=== PATIENT | male | born 2005 | race Two or more races ===

== ENCOUNTER 2023-05-13 18:42 | Emergency (ER) | payer MEDICAID, SELFPAY ==
[2023-05-13 18:44] VITALS: BP 137/80; PULSE 90; RESP 18; TEMP 36.8; O2SAT 100; BMI 21.2
--- NOTE | 2023-05-13 18:50 | XR_ITS ---
The [address] [address] Patient Name: LALO FAROOQ MRN: [id number] date: 2005 Sex: M Assigned Patient Location: ER Current Patient Location: Accession/Order Number: [id number] Exam Date: 05/13/2023 19:05 Report Date: 05/13/2023 20:08 At the request of: MATT LEE Procedure: XR hand RT min 3V EXAM: XR hand RT min 3V HISTORY: pain 4th 5th MCP COMPARISON: None. TECHNIQUE: 3 views right hand FINDINGS: There is a comminuted and angulated fracture of the distal fifth metacarpal. Joint spaces and alignment are otherwise preserved. Carpal rows and arcs are maintained. XR/XR hand RT min 3V IMPRESSION: Comminuted angulated fracture of the distal fifth metacarpal. Electronically authenticated by: SIMON TOLEDO Date: 05/13/2023 20:08
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
--- NOTE | 2023-05-13 19:37 | PC.NURSE ---
2 small abrasion on MCJ of ring and index finger. Peroxide cleansed.
== END 2023-05-13 20:09 | disposition home or self-care (01) ==
PROVIDERS: Emergency Provider Emergency Medicine
DX: S62.396A Other fracture of fifth metacarpal bone, right hand, initial encounter for closed fracture (principal); W22.09XA Striking against other stationary object, initial encounter
CPT/HCPCS: 29125; 73130; 99283

== ENCOUNTER 2023-05-30 09:46 | Outpatient (OUT) | payer MEDICAID, SELFPAY ==
--- NOTE | 2023-05-30 09:52 | XR_ITS ---
The [address] [address] Patient Name: LALO FAROOQ MRN: [id number] date: 2005 Sex: M Assigned Patient Location: [facility] Current Patient Location: [facility] Accession/Order Number: [id number] Exam Date: 05/30/2023 09:55 Report Date: 05/30/2023 22:01 At the request of: GEETA HARDEN Procedure: XR hand RT min 3V EXAM: XR hand RT min 3V HISTORY: Closed Nondisplaced Fracture Neck Of Fifth Metacarpal Right COMPARISON: 05-13-2023 FINDINGS: 4 radiographs of the right hand were obtained. Cast material overlies the right hand and limits fine osseous detail. There is a mildly displaced comminuted fracture of the fifth metacarpal. Unchanged alignment. Joint spaces are well-maintained. Soft tissues are normal. XR/XR hand RT min 3V IMPRESSION: Mildly displaced, comminuted fracture of the fifth metacarpal. Unchanged alignment. Electronically authenticated by: MARINA ALMARAZ Date: 05/30/2023 22:01
== END 2023-05-30 09:47 | disposition home or self-care (01) ==
LOC: RAD 09:46
PROVIDERS: Visit Provider Orthopaedic Surgery
DX: S62.366A Nondisplaced fracture of neck of fifth metacarpal bone, right hand, initial encounter for closed fracture (principal)
CPT/HCPCS: 73130

== ENCOUNTER 2023-06-13 11:33 | Outpatient (OUT) | payer MEDICAID, SELFPAY ==
--- NOTE | 2023-06-13 11:46 | XR_ITS ---
The [address] [address] Patient Name: LALO FAROOQ MRN: [id number] date: 2005 Sex: M Assigned Patient Location: [facility] Current Patient Location: Accession/Order Number: [id number] Exam Date: 06/13/2023 11:40 Report Date: 06/14/2023 00:41 At the request of: GEETA HARDEN Procedure: XR hand RT min 3V PROCEDURE: XR hand RT min 3V HISTORY: Closed Nondisplaced Fracture Neck Fifth Metacarpal Right [place] COMPARISON: XR hand right 05/30/2023 FINDINGS: BONES:Comminuted fracture of 5th metacarpal with dorsal apex angulation at distal diametaphyseal junction. No appreciable extension into the distal articular surface. SOFT TISSUES:Mild soft tissue swelling. Cast material has been removed. EFFUSION:None visible. OTHER: Negative. XR/XR hand RT min 3V IMPRESSION: 1. Interval removal of cast material. 2. Persistent visible comminuted fracture lines and stable alignment of of 5th metacarpal. Continued follow-up is recommended to document healing. Electronically authenticated by: GEETA العراقي Date: 06/14/2023 00:41
== END 2023-06-13 11:34 | disposition home or self-care (01) ==
LOC: RAD 11:33
PROVIDERS: Visit Provider Orthopaedic Surgery
DX: S62.366A Nondisplaced fracture of neck of fifth metacarpal bone, right hand, initial encounter for closed fracture (principal); M25.441 Effusion, right hand
CPT/HCPCS: 73130

== ENCOUNTER 2023-07-18 08:28 | Outpatient (OUT) | payer MEDICAID, SELFPAY ==
--- NOTE | 2023-07-18 | XR_ITS ---
The [address] [address] Patient Name: LALO FAROOQ MRN: [id number] date: 2005 Sex: M Assigned Patient Location: [facility] Current Patient Location: [facility] Accession/Order Number: [id number] Exam Date: 07/18/2023 08:48 Report Date: 07/18/2023 11:33 At the request of: GEETA HARDEN Procedure: XR hand RT min 3V EXAM: XR hand RT min 3V. HISTORY: RIGHT HAND PAIN. COMPARISON: Right hand study dated 06/13/2023. TECHNIQUE: 3 views of the right hand were obtained. FINDINGS: There is a comminuted fracture of the distal fifth metacarpal with mild lateral and anterior angulation of the distal major fracture fragment. Major fracture line is transversely oriented with smaller longitudinal fracture line more proximally located, similar to the prior study. Mild overriding suggested of major fracture fragments, difficult to say with certainty. Mild interval healing of the major fracture fragments suggested. A smaller proximal fracture line is again well seen. No evidence of dislocation. No other significant interval abnormality is identified. Foreshortened appearance of the middle phalanx of the little finger assumed developmental. Mild soft tissue swelling dorsally at the level of the metacarpal heads on lateral view. XR/XR hand RT min 3V IMPRESSION: Right hand study demonstrates comminuted fracture of the distal fifth metacarpal, suggestive of mild interval healing of major fracture fragments, smaller more proximal fracture line again identified without obvious healing. Follow-up as needed. Electronically authenticated by: ZIA RAHMAN Date: 07/18/2023 11:33
--- OUTSIDE RECORDS SUMMARY | 2023-07-18 08:32 | XMS_ITS | CCD ---
Author Name Unknown Address [address] [facility] [address] [place] [id number] Organization [facility] Care Team Providers Care [place] Sprayer Name Role Phone NELY VASQUEZ Attending Unavailable NELY VASQUEZ Admitting Unavailable HEALTH, COMMUNITY Primary Care Unavailable SELF, REFERRED Referring Unavailable NELY VASQUEZ Surgeon Unavailable NE Procedure Practitioner Unavailab DR ALBERT Bishop Primary Care Unavailable JAMEY CALLAWAY Attending Unavailable JAMYE CALLAWAY Consulting Unavailable JAMEY CALLAWAY Admitting Unavailable Problems Active Problems Problem Classification Problem Date Documented Da te Episodic/Chronic Unclassified (3 sources) CONTACT W/AND (SUSP) EXPOS COVID-19; Translations: [CONTACT W/AND (SUSP) EXPOS COVID-19] Onset: 07-09-2021 Past or Other Problems Problem Classification Problem Date Documented Da te Episodic/Chronic Unclassified (1 source) CONTACT W/AND (SUSP) EXPOS COVID-19; Translations: [CONTACT W/AND (SUSP) EXPOS COVID-19] Onset: 07-07-2021 Results Test Name Value Interpretation Reference Range Facil ity Covid-19 PCR (CVDTBH)on SARS-CoV-2 (COVID-19) RNA SHA+probe Ql (Unsp spec) Not detected Normal NOT DETECTED [facility] Comment on above: Result Comment: This test is not yet amadou roved or cleared by the [place] FDA. When there are no FDA-approved or cleared tests available, and other criteria are met, FDA can make tests available under an emergency access mechanism called an Emergency Use Authorization (EUA). The EUA for this test is supported by the [place] of Health and Human Service's (HHS's) declaration that circumstances exist to justify the emergency use of in vitro diagnostics for the detection and/or diagnosis of the virus that causes COVID-19. This EUA will remain in effect (meaning this test can be used) for the duration of the COVID-19 declaration justifying emergency of IVDs, unless it is terminated or revoked by FDA (after which the test may no longer be used). When diagnostic testing is negative, the possibility of a false negative should be considered in the context of a patient's recent exposures and the presence of clinical signs and symptoms consistent with SARS-CoV-2. Performed By: #### [facility] #### [facility] [address] [address] [address] Maddy Spears Operative Reporton 0 Operative Report MR#: [id number] [facility] Pt. Name: Yamil Farooq Room #: 0C Discharge Date: Birthdate: 2005 OPERATIVE REPORT DATE OF SURGERY: 04/28/2020 SURGEON: Nely Vasquez M.D. ETCHER PHOTOENGRAVING: Giles Rico MD PREOPERATIVE DIAGNOSIS: Right tibia symptomatic hardware. POSTOPERATIVE DIAGNOSIS: Right tibia symptomatic hardware. PROCEDURE: Right tibia hardware removal. ANESTHESIA: MAC. FLUIDS: Per anesthesia record. ESTIMATED BLOOD LOSS: Minimal. EXPLANTS: Right tibia Arthrex bone staple. COMPLICATIONS: None. INDICATIONS: The patient is a 15-year-old male with history of right knee ACL reconstruction by Dr. Griffiths, presented to my clinic with complaints of pain over the tibial staple, mainly with kneeling. Otherwise, doing very well with regard to his knee. On exam, he did have tenderness over the tibial incision with palpable staple. Given his persistent pain, we discussed surgical intervention with right tibia hardware removal. The risks, benefits, and alternatives of surgery including the risks of bleeding, infection, damage to nearby structures, wound complications, and need for further surgery discussed. All questions were answered. The patient and his mother acknowledged understanding and elected to proceed. Informed consent was obtained from the patient's mother. PROCEDURE IN DETAIL: The patient was identified in the preoperative area. The operative site was marked by myself. He was taken to the operative theater, placed supine position and MAC was administered. Preoperative antibiotics were administered. Preoperative examination showed full range of motion of the knee, stable varus and valgus stress. Negative Harmeet. Negative posterior drawer. The right lower extremity was prepped and draped in usual sterile fashion. Proper time-out was done. We began with placement of 0.25% Marcaine with epinephrine. A longitudinal incision was made utilizing previously a tibial incision and Bovie cautery was used to dissect down to the tibial staple. Shirley elevator was then utilized to dissect the scar tissue off the staple. We then placed our staple remover onto the staple and without complication. X-ray was obtained to ensure no fracture. At this point, we debrided the site with rongeur and then copiously irrigated. Closed the skin in layered fashion with 2-0 Vicryl in a subcuticular Biosyn suture. Sterile dressing was placed. The patient was taken to PACU in stable condition. All needle and sponge counts correct x2. I was present, scrubbed, and participated in all critical portions of procedure and available otherwise to assist. POSTOPERATIVE COURSE: The patient will be discharged home, weightbearing as tolerated to right lower extremity. He will be given a few days of Burnett for pain control. I will see him back in clinic for wound check in 10-14 days. Electronically Signed by: Nely Vasquez M.D. 04/29/2020 12:29 P Nely Vasquez M.D. Date Dict: 04/28/2020/07:58 A/Nely Vasquez M.D. Date Trans: 04/28/2020 08:54 A/patrizia [id number] Normal [facility] POC GLUCOSE LABon 04-28-2020 Glucose [Mass/Vol] 103 mg/dL High 70-[address] [facility] Comment on above: Performed By: #### [id number] #### [address] [place] [address], [facility] *SARS-CoV-2 COVID-19on 04-25 [id number] Not Detected Normal Not Detected The [facility] Comment on above: Order Comment: The Aptima SARS-CoV-2 ass ay is a nucleic acid amplification test intended for the qualitative detection of RNA from SARS-CoV-2 isolated and purified from nasopharyngeal (ARCHITECTURAL SUPERINTENDENT),oropharyngeal (OP), nasal swab, sputum, and bronchoalveolar lavage (BAL) specimens from patients with signs and symptoms of infection who are suspected of COVID-19. Results are for the identification of SARS-CoV-2 RNA. The SARS-CoV-2 RNA is generally detectable during the acute phase of infection. The Aptima SARS-CoV-2 Assay on the Contractor Copilot and Palmer Fusion system is intended for use by laboratory personnel specifically instructed and trained in the operation of the Palmer and Palmer Fusion system. The Aptima SARS-CoV-2 assay is only for use under the Food and Drug Administration Emergency Use Authorization. Testing is limited to laboratories certified under the Clinical Laboratory Improvement Amendments of 1988 (CLIA), 42 U.S.C. ???263a, to perform high complexity tests. Not Detected: Not detected does not preclude SARS-CoV-2 infection and should not be used as the sole basis for patient management decisions. Not detected results must be combined with clinical observations, patient history, and epidemiological information. Performed By: #### 3 [id number] #### [address] KNEE RIGHT 4VWSon 04-11-[address] [facility] Department of Radiology [address] [place] [id number] ======== Patient Name: YAMIL FAROOQ : 2005 Sex: M Age: Race: Black Pt. Location: 4 Patient Status: Ordered Date: 04/11/2020 10:55:00 AM Completed Date: 04/11/2020 11:32 AM Requesting Provider: NELY VASQUEZ Attending Provider: Report Copy To: Signs & Symptoms: M25.561 Pain in right knee I10 History: [place] Comments: , , , Ordering Provider - NELY VASQUEZ MD , Exam: KNEE RIGHT 4VWS ======== KNEE RIGHT 4VWS 04/11/2020 11:32 AM SIGNS AND SYMPTOMS: M25.561 Pain in right knee I10 TECHNOLOGIST COMMENTS: Patient c/o right knee pain for few weeks. Patient states previous right knee surgery 4 years ago QUESTION FOR THE RADIOLOGIST: , , , Ordering Provider - NELY AVSQUEZ MD , PROTOCOL: AP,Lateral,Tunnel and Tangential views were obtained. COMPARISON: August 2016 FINDINGS: Previous ACL graft tunnel noted. There is no appreciable joint effusion, fracture or evidence of acute bony abnormality. Articular surfaces appear intact without focal erosion or collapse. IMPRESSION: * No evidence of acute disease. Electronically signed: Daren Alexandra. Transcribed by: [email or web address], User Resident: DAREN ALEXANDRA Electronically Signed by: DAREN ALEXANDRA @ 04/11/2020 12:43 PM I personally read this/these film(s) with this resident Normal [facility] Comment on above: Order Comment: , , , Ordering Provider - NELY VASQUEZ MD , Encounters Encounter Date Encounter Type Care Provider Facility Start: 07-07-2021 End: 07-07-[address] PRICE [facility] Facility: Start: 04-28-2020 End: 04-29-2020 Patient encounter procedure NELY VASQUEZ Facility:[facility] Procedures Date Procedure Procedure Detail Performing Clinician Start: 04-28-2020 REMOVAL OF SUPPORT IMPLANT NLEY VASQUEZ Start: 04-28-2020 ANESTH KNEE AREA SURGERY NELY VASQUEZ Payers Date Payer Category Payer Unknown [id number] 1984 Unknown [id number] 1961 Unknown [id number] Unknown [id number] Summary Purpose Family History No Family History Records FoundNo Family History Records Found Advance Directives No Advanced Directives Records FoundNo Advanced Directives Records Found Additional Source Comments (unrecognized sect ion and content) No Status Records FoundNo Status Records Found INFORMATION SOURCE (unrecogn ized section and content) DATE CREATED AUTHOR 06/05/2020 [facility] DATE CREATED AUTHOR AUTHOR'S ORGANIZ ATION 07/10/2021 [facility] FOR RECORDS PERTAINING TO PATIENTS WHO ARE OR HAVE BEEN ENROLLED IN A CHEMICAL DEPENDENCY/SUBSTANCEABUSE PROGRAM, SOME INFORMATION MAY BE OMITTED. This clinical summary was aggregated from multiple sources. Caution should be exercised in using it in the provision of clinical care. This summary normalizes information from multiple sources, and as a consequence, information in this document may materially change the coding, format and clinical context of patient data. In addition, data may be omitted in some cases. CLINICAL DECISIONS SHOULD BE BASED ON THE PRIMARY CLINICAL RECORDS. [facility]. provides no warranty or guarantee of the accuracy or completeness of information in this document.
== END 2023-07-18 08:29 | disposition home or self-care (01) ==
LOC: RAD 08:28
PROVIDERS: Visit Provider Orthopaedic Surgery
DX: S62.366D Nondisplaced fracture of neck of fifth metacarpal bone, right hand, subsequent encounter for fracture with routine healing (principal)
CPT/HCPCS: 73130